=== PATIENT | female | born 2000 | race Caucasian/White ===

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

== ENCOUNTER 2018-01-06 09:59 | Day surgery (SDC) | payer OTHER ==
[2018-01-06] MEDS ORDERED: FENTAnyl 50 MCG/ML VIAL (10:09)
[2018-01-06] MEDS ORDERED: PHENYLephrine (100 MCG/ML) 5ML SYG (10:09)
[2018-01-06] MEDS ORDERED: EPHEDrine 50 MG INJ (10:09)
[2018-01-06] MEDS ORDERED: PROPOFOL 60 ML ×2 (10:09→12:08)
== END 2018-01-06 18:33 | disposition home or self-care (01) ==
LOC: GIL 09:59
DX: K29.50 Unspecified chronic gastritis without bleeding (principal); K64.8 Other hemorrhoids
CPT/HCPCS: 43239; 84703; 88305; 88312

== ENCOUNTER 2018-06-21 07:41 | Day surgery (SDC) | payer OTHER ==
[~2018-06-21 07:41] MED LIST: CEFAZOLIN 2 GM/50 ML (PMX) 50 ML IVPB; SOD CHLORIDE 0.9% 1,000 ML IV
[2018-06-21 08:58] LABS: ADD MAN DIFF? NO
[2018-06-21 09:01] LABS: WHITE BLOOD COUNT 7.2 10^3/ul (4.8-10.8)
[2018-06-21 09:01] LABS: BASOPHILS % 0.6 % (0.0-2.0); EOSINOPHILS # 0.1 10^3/ul (0.0-0.5); EOSINOPHILS % 1.4 % (0.0-7.0); HEMATOCRIT 41.1 % (37.0-47.0); HEMOGLOBIN 13.6 g/dl (12.0-16.0); LYMPHOCYTES # 2.4 10^3/ul (0.8-2.9); LYMPHOCYTES % 33.8 % (18.0-55.0); MEAN CORPUSCULAR HEMOGLOBIN 30.3 pg (29.0-33.0); MEAN CORPUSCULAR HGB CONC 33.1 g/dl (32.0-37.0); MEAN CORPUSCULAR VOLUME 91.5 fl (72.0-104.0); MEAN PLATELET VOLUME 10.4 fl (7.4-10.4); MONOCYTE # 0.6 10^3/ul (0.3-0.9); MONOCYTES % 7.7 % (0.0-13.0); NEUTROPHILS % 56.4 % (30.0-74.0); PLATELET COUNT 305 10^3/UL (140-415); RED BLOOD COUNT 4.49 10^6/ul (4.20-5.40); RED CELL DISTRIBUTION WIDTH 11.9 % (11.5-14.5)
[2018-06-21 09:11] LABS: INR 1.07; PT RATIO 1.1
[2018-06-21 09:12] LABS: PARTIAL THROMBOPLASTIN TIME 29.3 Sec (23.0-35.0)
[2018-06-21 09:21] LABS: ALANINE AMINOTRANSFERASE 15 IU/L (13-69); ALBUMIN 4.7 g/dl (3.3-4.9); ALBUMIN/GLOBULIN RATIO 1.46; ALKALINE PHOSPHATASE 60 IU/L (42-121); ANION GAP 10 (5-13); ASPARTATE AMINO TRANSFERASE 17 IU/L (15-46); BILIRUBIN,INDIRECT 1.2 mg/dl (0-1.1); BILIRUBIN,TOTAL 1.2 mg/dl (0.2-1.3); BLOOD UREA NITROGEN 12 mg/dl (7-20); CALCIUM 9.7 mg/dl (8.4-10.2); CARBON DIOXIDE 25 mmol/L (21-31); CHLORIDE 107 mmol/L (97-110); CREATININE 0.43 mg/dl (0.44-1.00); Estimated GFR > 60 mL/min (>60); GLUCOSE 93 mg/dl (70-220); POTASSIUM 3.9 mmol/L (3.5-5.1); SODIUM 142 mmol/L (135-144); TOTAL PROTEIN 7.9 g/dl (6.1-8.1)
[2018-06-21] MEDS ORDERED: HYDROmorphONE 1 MG/5 ML IV SYRINGE IV ×3 (10:00)
[2018-06-21] MEDS ORDERED: MEPERIDINE 25 MG INJ IV (10:00)
[2018-06-21] MEDS ORDERED: ALBUTEROL 0.083% (NEB) 2.5 MG/3 ML AMP HHN (10:00)
[2018-06-21] MEDS ORDERED: METOCLOPRAMIDE 10 MG INJ IV (10:00)
[2018-06-21] MEDS ORDERED: ONDANSETRON 4 MG INJ IV ×2 (10:00→12:00)
[2018-06-21] MEDS ORDERED: FENTAnyl 50 MCG/ML VIAL IV ×2 (10:00)
[2018-06-21] MEDS ORDERED: DIPHENHYDRAMINE 50 MG INJ IV (10:00)
[2018-06-21] MEDS ORDERED: ROCURONIUM 50 MG INJ (10:17)
[2018-06-21] MEDS ORDERED: SUCCINYLCHOLINE CHLORIDE 100 MG/5 ML SYG IV (10:17)
[2018-06-21] MEDS ORDERED: FENTAnyl 50 MCG/ML VIAL (10:17)
[2018-06-21] MEDS ORDERED: PROPOFOL 20 ML (10:17)
[2018-06-21] MEDS ORDERED: CEFAZOLIN 1 GM INJ (10:17)
[2018-06-21] MEDS ORDERED: LIDOCAINE 100 MG SYRINGE (10:17)
[2018-06-21] MEDS: LIDOCAINE 1%/EPI (1:100,000) (MDV) 20 ML (10:47)
[2018-06-21] MEDS: BUPIVACAINE 0.5%/EPI (SDV) 30 ML INJ (10:47)
[2018-06-21] MEDS ORDERED: SUGAMMADEX SODIUM 200 MG/2 ML VIAL IV (11:19)
[2018-06-21] MEDS ORDERED: SOD CHLORIDE 0.9% 1,000 ML IV (11:40)
[2018-06-21] MEDS ORDERED: morphine 2 MG INJ IV (12:00)
[2018-06-21] MEDS ORDERED: HYDROCODONE/APAP (5/325) TAB PO (12:00)
[2018-06-21] MEDS ORDERED: KETOROLAC 30 MG INJ IV (12:00)
[2018-06-21] MEDS: POVIDONE IODINE 10% 28.4 GM OINT (12:16)
== END 2018-06-21 13:03 | disposition home or self-care (01) ==
LOC: SDS 07:41
DX: L05.91 Pilonidal cyst without abscess (principal)
CPT/HCPCS: 11772; 80053; 84703; 85025; 85610; 85730; 88304